=== PATIENT | female | born 1960 | race African-American/Black ===

== ENCOUNTER 2024-07-21 10:45 | Emergency (ER) | payer BC ==
[2024-07-21] MEDS ORDERED: Dexamethasone 10 MG/ML VIAL ONE (11:33)
== END 2024-07-21 11:48 | disposition home or self-care (01) ==
LOC: ERS 10:45
DX: J11.1 Influenza due to unidentified influenza virus with other respiratory manifestations (principal); I10 Essential (primary) hypertension; Z79.899 Other long term (current) drug therapy
CPT/HCPCS: 87081; 87428; 87430; 93005; 99283; J1100